=== PATIENT | male | born 2000 | race Caucasian/White ===

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

== ENCOUNTER 2022-03-05 10:11 | Day surgery (SDC) | payer MEDICAID ==
[~2022-03-05] VITALS: Ht 180.3 cm; Wt 56.0 kg
[2022-03-05 13:45] VITALS: BP 118/75; PULSE 65; TEMP 97.5
[2022-03-05 14:00] VITALS: BP 119/74; PULSE 58
[2022-03-05 14:56] VITALS: BP 97/69; PULSE 52; TEMP 97.3
--- NOTE | 2022-03-05 18:29 | NUR ---
1345- RETURNS TO BAY 1 VIA CART. ASSIST TO RECLINER. MONITOR ON. APPLE JUICE GIVEN. CALL LIGHT IN REACH. 1400- SECOND SET OF VS OBTAINED. IV SITE DC'D WITH CATH INTACT. DISCHARGE INSTRUCTIONS GIVEN WITH VERBAL UNDERSTANDING. 1415- PT DRESSED. DISMISSED VIA W/C WITH MOTHER TO PRIVATE VEHICLE. MOTHER HAS DC FOLDER IN HAND.
== END 2022-03-05 14:15 | disposition home or self-care (01) ==
LOC: SDCO 10:11
DX: R11.2 Nausea with vomiting, unspecified (principal); R10.12 Left upper quadrant pain; R63.0 Anorexia; R68.81 Early satiety; R63.4 Abnormal weight loss; K21.9 Gastro-esophageal reflux disease without esophagitis; Z68.53 Body mass index [BMI] pediatric, 85th percentile to less than 95th percentile for age
CPT/HCPCS: J2704; J7120